=== PATIENT | male | born 1970 | race African-American/Black ===

== ENCOUNTER 2018-04-26 12:19 | Emergency (ER) | payer MEDICARE ==
[~2018-04-26] VITALS: Ht 182.9 cm; Wt 122.7 kg
[~2018-04-26 12:19] MED LIST: ACETAMINOPHEN325 MG NG; ACETAMINOPHEN325 MG PO; ADVAIR 100/501 DISK; ADVAIR 100/501 DISK INH; ALDACTONE25 MG PO; BAYER CHEWABLE81 MG PO; COREG12.5 MG PO; COREG6.25 MG PO; HALOPERIDOL2 MG PO; HYDROCODON-ACE1 EAC7; LASIX40 MG PO; LOTENSIN5 MG PO; NICODERM C1 PATCH .3 TRANSDERM; PLAVIX75 MG PO; PROVENTIL HFA6.7 GM INH; PROVENTIL/2.5 MG/3 M; PROVENTIL/2.5 MG/3 M INH; SPIRIVA18 MCG; SPIRIVA18 MCG INH
[2018-04-26 12:30] VITALS: Ht 182.9 cm; Wt 122.7 kg
[2018-04-26 13:14] LABS: BASOPHILS 0.2 % (0-2); EOSINOPHILS 1.6 % (0-7); HEMATOCRIT 40.8 % (42.0-54.0); HEMOGLOBIN 13.6 g/dL (13.5-17.5); IMMATURE GRANULOCYTES 0.2 % (0-5); LYMPHOCYTES 34.8 % (15-50); MCH 24.1 pg (26.0-34.0); MCHC 33.3 g/dL (31.0-37.0); MCV 72.3 fL (80.0-100.0); MEAN PLATELET VOLUME 9.6 fL (7.4-10.4); MONOCYTES 9.6 % (2-11); NEUTROPHILS 53.6 % (40-80); RBC 5.64 10x6/uL (4.20-6.10); RDW 20.1 % (11.5-14.5); WBC 6.4 10x3/uL (4.8-10.8)
[2018-04-26 13:16] LABS: UDS - AMPHET POSITIVE QUAL (NEGATIVE); UDS - BARB NEGATIVE QUAL (NEGATIVE); UDS - BENZO POSITIVE QUAL (NEGATIVE); UDS - COCAINE POSITIVE QUAL (NEGATIVE); UDS - OPIATE NEGATIVE QUAL (NEGATIVE); UDS - PCP NEGATIVE QUAL (NEGATIVE); UDS - THC POSITIVE QUAL (NEGATIVE)
[2018-04-26 13:20] LABS: PLATELET COUNT 136 10x3/uL (130-400)
[2018-04-26 13:24] LABS: ALBUMIN 3.8 g/dL (3.4-5.0); ALKALINE PHOSPHATASE 34 U/L (46-116); ALT (SGPT) 32 U/L (10-68); BILIRUBIN - TOTAL 0.92 mg/dL (0.2-1.3); CALC OSMOLALITY 284 mosm/kg (275-300); CALCIUM 8.7 mg/dL (8.5-10.1); CARBON DIOXIDE 24.1 mmol/L (21.0-32.0); CHLORIDE - SERUM 107 mmol/L (98-107); CREATININE - SERUM 0.9 mg/dL (0.6-1.3); GLUCOSE 126 mg/dL (74-106); POTASSIUM - SERUM 3.9 mmol/L (3.5-5.1); PROTEIN - SERUM 7.6 g/dL (6.4-8.2); SODIUM 142 mmol/L (136-145); UREA NITROGEN 13 mg/dL (7-18); eGFR NON AFRICAN AMERICAN > 90 mL/min (90-120)
[2018-04-26 13:31] LABS: APPEARANCE CLEAR (CLEAR); BILIRUBIN NEGATIVE (NEGATIVE); COLOR DK YELLOW (YELLOW); GLUCOSE NEGATIVE (NEGATIVE); KETONE NEGATIVE (NEGATIVE); NITRITE NEGATIVE (NEGATIVE); PROTEIN TRACE mg/dL (NEGATIVE); RED CELLS - URINE NONE SEEN /hpf (0-5); SPECIFIC GRAVITY 1.015 (1.005-1.020); WHITE CELLS - URINE NSEEN /hpf (0-5)
[2018-04-26 13:32] LABS: BACTERIA NONE SEEN /hpf (NONE SEEN); EPITHELIAL CELLS NSEEN /hpf (0-5)
[2018-04-26 18:50] VITALS: BP 136/79
== END 2018-04-26 20:23 ==
LOC: D.ER 12:19
PROVIDERS: Family Medicine
DX: R45.851 Suicidal ideations (principal); Z86.59 Personal history of other mental and behavioral disorders; R44.0 Auditory hallucinations; Z86.73 Personal history of transient ischemic attack (TIA), and cerebral infarction without residual deficits; G40.909 Epilepsy, unspecified, not intractable, without status epilepticus; E11.9 Type 2 diabetes mellitus without complications; I50.9 Heart failure, unspecified; J44.9 Chronic obstructive pulmonary disease, unspecified

== ENCOUNTER 2018-05-08 08:19 | Emergency (ER) | payer MEDICARE, OTHER ==
[~2018-05-08] VITALS: Ht 182.9 cm; Wt 126.4 kg
[2018-05-08 08:22] VITALS: Ht 182.9 cm; Wt 126.4 kg
[2018-05-08] MEDS ORDERED: LISINOPRIL5 MG PO (08:23)
[2018-05-08] MEDS ORDERED: PROPRANOLOL HCL20 MG PO (08:24)
[2018-05-08] MEDS ORDERED: LITHIUM CARBON300 M3 PO (08:25)
[2018-05-08] MEDS ORDERED: COREG12.5 MG PO (08:26)
[2018-05-08] MEDS ORDERED: FLUVOXAMINE MA100 M1 PO (08:26)
[2018-05-08] MEDS ORDERED: VENTOLIN HFA18 GM INH (08:27)
[2018-05-08] MEDS ORDERED: FUROSEMIDE40 MG PO (08:27)
[2018-05-08] MEDS ORDERED: SPIRIVA RESPIMAT4 G1 INH (08:28)
[2018-05-08] MEDS ORDERED: ADVAIR HFA [SP]12 GM INH (08:28)
[2018-05-08 08:44] LABS: APPEARANCE CLEAR (CLEAR); COLOR STRAW (YELLOW)
[2018-05-08 08:45] LABS: BILIRUBIN NEGATIVE (NEGATIVE); GLUCOSE NEGATIVE (NEGATIVE); KETONE NEGATIVE (NEGATIVE); NITRITE NEGATIVE (NEGATIVE); PROTEIN NEGATIVE (NEGATIVE); UROBILINOGEN NORMAL (NORMAL)
[2018-05-08 08:55] LABS: BASOPHILS 0.1 % (0-2); HEMATOCRIT 38.5 % (42.0-54.0); HEMOGLOBIN 12.9 g/dL (13.5-17.5); IMMATURE GRANULOCYTES 0.4 % (0-5); LYMPHOCYTES 29.4 % (15-50); MCH 24.1 pg (26.0-34.0); MCHC 33.5 g/dL (31.0-37.0); MCV 71.8 fL (80.0-100.0); MEAN PLATELET VOLUME 9.1 fL (7.4-10.4); MONOCYTES 8.2 % (2-11); NEUTROPHILS 59.9 % (40-80); PLATELET COUNT 146 10x3/uL (130-400); RBC 5.36 10x6/uL (4.20-6.10); RDW 19.5 % (11.5-14.5); WBC 10.1 10x3/uL (4.8-10.8)
[2018-05-08 08:55] LABS: UDS - AMPHET NEGATIVE QUAL (NEGATIVE); UDS - BARB NEGATIVE QUAL (NEGATIVE); UDS - BENZO NEGATIVE QUAL (NEGATIVE); UDS - COCAINE NEGATIVE QUAL (NEGATIVE); UDS - OPIATE NEGATIVE QUAL (NEGATIVE); UDS - PCP NEGATIVE QUAL (NEGATIVE); UDS - THC POSITIVE QUAL (NEGATIVE)
[2018-05-08 09:11] LABS: ALBUMIN 3.6 g/dL (3.4-5.0); ALKALINE PHOSPHATASE 44 U/L (46-116); ALT (SGPT) 32 U/L (10-68); BILIRUBIN - TOTAL 0.48 mg/dL (0.2-1.3); CALC OSMOLALITY 266 mosm/kg (275-300); CALCIUM 8.6 mg/dL (8.5-10.1); CARBON DIOXIDE 23.7 mmol/L (21.0-32.0); CHLORIDE - SERUM 102 mmol/L (98-107); CREATININE - SERUM 0.9 mg/dL (0.6-1.3); GLUCOSE 113 mg/dL (74-106); POTASSIUM - SERUM 4.5 mmol/L (3.5-5.1); PROTEIN - SERUM 7.8 g/dL (6.4-8.2); SODIUM 134 mmol/L (136-145); UREA NITROGEN 6 mg/dL (7-18); eGFR NON AFRICAN AMERICAN > 90 mL/min (90-120)
[2018-05-08 11:30] VITALS: BP 138/96
== END 2018-05-08 11:56 | disposition other institution (70) ==
LOC: D.ER 08:19
PROVIDERS: Emergency Medicine
DX: R45.851 Suicidal ideations (principal); D64.9 Anemia, unspecified; F15.10 Other stimulant abuse, uncomplicated; F32.9 Major depressive disorder, single episode, unspecified; Z86.73 Personal history of transient ischemic attack (TIA), and cerebral infarction without residual deficits; E11.9 Type 2 diabetes mellitus without complications; I50.9 Heart failure, unspecified